=== PATIENT | male | born 1980 | race Two or more races ===

== ENCOUNTER 2023-08-15 23:11 | Emergency (ER) | payer MEDICAID, OTHER ==
[~2023-08-15] VITALS: Ht 175.3 cm; Wt 114.4 kg
[2023-08-16 01:44] VITALS: BP 120/80; PULSE 110; RESP 20; TEMP 98.9; O2SAT 95
[2023-08-16] MEDS ORDERED: TETANUS-DIPTH-ACEL PERTUSSIS 0.5ML SYR Tdap IM ONE (02:30)
[2023-08-16] MEDS ORDERED: CEPH500C PO (02:45)
== END 2023-08-16 03:19 | disposition home or self-care (01) ==
LOC: ER 23:11
DX: S62.291A Other fracture of first metacarpal bone, right hand, initial encounter for closed fracture (principal); S60.511A Abrasion of right hand, initial encounter; S30.811A Abrasion of abdominal wall, initial encounter; E11.9 Type 2 diabetes mellitus without complications; V43.52XA Car driver injured in collision with other type car in traffic accident, initial encounter; Y93.89 Activity, other specified; Y92.410 Unspecified street and highway as the place of occurrence of the external cause; Y99.8 Other external cause status
CPT/HCPCS: 29125; 73130; 73630; 90471; 90715